=== PATIENT | male | born 1965 | race Caucasian/White ===

== ENCOUNTER 2018-11-27 21:09 | Emergency (ER) | payer MEDICAID ==
[~2018-11-27] VITALS: Ht 177.8 cm; Wt 99.6 kg
[2018-11-27 21:28] VITALS: BP 126/72
--- NOTE | 2018-11-27 21:32 | NUR ---
PT RETURNED TO LOBBY IN STABLE CONDITION
--- NOTE | 2018-11-27 23:05 | NUR ---
PT AMBULATED TO BED 01.
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
[2018-11-27] MEDS ORDERED: MORPHINE SULFATE 4 MG/ML SYR IM ONE (23:55)
--- NOTE | 2018-11-27 23:55 | NUR ---
PATIENT REFUSED MORPHIN IM, PATIENT STATES, " I DO NOT WANT TO ADDICTED." DR. BARRERA AWARE, PATIENT STATES HE WANTS TYLENOL INSTEAD.
--- NOTE | 2018-11-28 00:05 | NUR ---
PLACED A POSTERIOR SHORT ARM SPLINT ON THE PT'S RIGHT HAND.
[2018-11-28] MEDS ORDERED: ACETAMINOPHEN EXTRA STRENGTH 500 MG TAB PO ONE (00:15)
[2018-11-28 00:35] VITALS: BP 115/60
--- NOTE | 2018-11-28 00:35 | NUR ---
WENT TO GIVE PT D/C INSTRUCTIONS AND FOUND THAT PT HAD LEFT WITHOUT NOTICE AND WITHOUT WAITING FOR INSTRUCTIONS.
== END 2018-11-28 00:35 | disposition home or self-care (01) ==
LOC: MED 21:09
DX: S60.221A Contusion of right hand, initial encounter (principal); E11.9 Type 2 diabetes mellitus without complications; Z86.73 Personal history of transient ischemic attack (TIA), and cerebral infarction without residual deficits; X58.XXXA Exposure to other specified factors, initial encounter; Y93.89 Activity, other specified; Y92.89 Other specified places as the place of occurrence of the external cause; Y99.8 Other external cause status
CPT/HCPCS: 73140; 99283; J2270